=== PATIENT | female | born 1970 | race Caucasian/White ===

== ENCOUNTER → 2017-01-17 | Outpatient (CLI) | payer OTHER ==
[~2017-01-17] MED LIST: ALPRAZOLAM; CALCITROL PO; EPOGEN; FOLBEE PO; HEPARIN; HYDROCODONE-APA1 T33; IRON1 TAB PO; LIPITOR; PHOSLO667 MG; PROGRAF1 MG PO; TUMS PO; VYTORIN 10/10 T1 TAB PO; ZYVOX PO; [UNRECOGNIZED DRUG - OTHER] PO
== END | disposition home or self-care (01) ==
LOC: CSSDAY 13:36
DX: N18.3 Chronic kidney disease, stage 3 (moderate) (principal); D63.1 Anemia in chronic kidney disease
CPT/HCPCS: 36415; 36430; 86850; 86900; 86901; 86923; P9016